=== PATIENT | female | born 1955 | race Caucasian/White ===

== ENCOUNTER 2018-06-16 15:36 | Outpatient (REF) | payer MEDICARE, SELFPAY ==
--- NOTE | 2018-06-16 15:00 | PAPFT_PTH ---
PATIENT: Jocelyn Sanchez LOC: [facility] U#:[id number] AGE/SX: 62/F ROOM: RE06/16/[address]: ARIELLE Chavez : 1955 BED: DIS: 06/16/2018 SPEC #: [id number] RECD: 06/17/18 12:51 STATUS: TABATHA REQ #: [id number] MANNY: 06/16/18 15:[address]: Estelita Lindsey DEPT: [facility] Cytology RECD BY: Eva Sepulveda Tissues: 1 - CX/ENDOCX FOR PAP SMEARS Procedures: PAP THIN PREP/UVM Screening HPV DNA PROBE Comments: [id number]
== END 2018-06-16 15:56 ==
LOC: LBN 15:36
PROVIDERS: PCP Nurse Practitioner Family; Visit Provider Nurse Practitioner Family
DX: Z12.4 Encounter for screening for malignant neoplasm of cervix (principal); Z11.51 Encounter for screening for human papillomavirus (HPV)
CPT/HCPCS: 88142; 87624

== ENCOUNTER 2018-08-04 05:14 | Outpatient (CLI) | payer MEDICARE, SELFPAY ==
--- NOTE | 2018-08-04 10:40 | DI.MAMMO_ITS ---
SYMPTOMS/DIAGNOSIS: BREAST CANCER SCREENING, Z12.31 SYMPTOM/DIAGNOSIS: SCREENING, Z12.13 MAMMOGRAMS: Mammograms were interpreted according to the usual protocol including computer analysis with CAD system, tomosynthesis and C view imaging. The breasts are of moderate density with fairly symmetrical distribution of fibroglandular tissue. No dominant mass or clumped microcalcification is identified in either breast. Current examination is compared with the previous examination of July 2015 and there has been no gross interval change in appearance in comparison with the previous studies. CONCLUSION: No specific evidence of malignancy at this time. Routine screening examinations are suggested at yearly intervals in this age group according to the ACS/ACR guidelines. Category 1, breast density category B. MQSA ASSESSMENT OF FINDINGS: Negative. Category 1. Patient will receive a letter notifying them of these results. BI-RADS category B. There are scattered areas of fibroglandular density.
== END 2018-08-04 05:34 ==
PROVIDERS: PCP Nurse Practitioner Family; Visit Provider Nurse Practitioner Family
DX: Z12.31 Encounter for screening mammogram for malignant neoplasm of breast (principal)
CPT/HCPCS: 77063; 77067

== ENCOUNTER 2019-07-20 00:54 | Outpatient (CLI) | payer MEDICARE, SELFPAY ==
[2019-07-20 10:50] LABS: Hemoglobin A1C 5.7 % (3.8-5.6)
[2019-07-20 11:02] LABS: ALT 19 U/L (14-59); AST 16 U/L (15-37); Albumin 3.9 g/dL (3.4-5.0); Alkaline Phosphatase 50 U/L (46-116); Anion Gap 8.2 mmol/L (3-11); BUN 17 mg/dL (7-18); Bilirubin, Total 0.8 mg/dL (0.2-1.0); CO2 30.8 mmol/L (21.0-32.0); CREATININE 0.79 mg/dL (0.55-1.02); Calcium 9.5 mg/dL (8.5-10.1); Calculated LDL 192 mg/dL; Chloride 103 mmol/L (98-107); Cholesterol 275 mg/dL (<200); Glucose 89 mg/dL (74-106); HDL Cholesterol 63 mg/dL (40-60); Potassium 4.3 mmol/L (3.5-5.1); Sodium 142 mmol/L (136-145); Total Protein 7.1 g/dL (6.4-8.2); Triglyceride 103 mg/dL (<150)
== END 2019-07-20 01:14 ==
PROVIDERS: PCP Nurse Practitioner Family; Visit Provider Nurse Practitioner Family
DX: E78.5 Hyperlipidemia, unspecified (principal); R73.09 Other abnormal glucose
CPT/HCPCS: 36415; 80053; 80061; 83036

== ENCOUNTER 2019-08-10 02:23 | Outpatient (CLI) | payer MEDICARE, SELFPAY ==
--- NOTE | 2019-08-10 10:42 | DI.MAMMO_ITS ---
EXAM: MG MAMMO SCREENING CLINICAL HISTORY: screening Z12.39. TECHNIQUE: Bilateral full field digital CC and MLO mammographic images were obtained with 3D tomosyn thesis and utilizing computer aided detection (CAD). COMPARISON: Available for comparison. FINDINGS: Masses/Architectural Distortion: There appears to be a partially obscured retroareolar nodule in the right breast. Microcalcifications: No suspicious pleomorphic-type are seen. Skin Thickening/Nipple Retraction: None. IMPRESSION: 1. Nodular opacity in the retroareolar region of the right breast. 2. This area should be further evaluated with spot compression views. Ultrasound may be indicated at that time. BI-RADS Cat 0 - Assessment Incomplete: Need additional imaging evaluation Breast Density - Category B - Scattered areas of fibroglandular density A negative radiographic report should not delay biopsy if a dominant or clinically suspicious mass is present. Up to ten percent of cancers are not identified on mammography. A negative report may reinforce clinical impression. Adenosis and dense breasts may obscure an underlying neoplasm. False positive reports average 6 to 10%. Patient will receive a letter notifying them of these results.
== END 2019-08-10 02:43 ==
PROVIDERS: PCP Nurse Practitioner Family; Visit Provider Nurse Practitioner Family
DX: Z12.31 Encounter for screening mammogram for malignant neoplasm of breast (principal); R92.8 Other abnormal and inconclusive findings on diagnostic imaging of breast
CPT/HCPCS: 77063; 77067

== ENCOUNTER 2020-07-20 10:52 | Outpatient (REF) | payer MEDICARE, SELFPAY ==
[2020-07-20 14:31] LABS: Hemoglobin A1C 5.6 % (<5.7)
[2020-07-20 14:41] LABS: BUN 16 mg/dL (7-18); CREATININE 0.88 mg/dL (0.55-1.02); Calcium 9.3 mg/dL (8.5-10.1); Calculated LDL 87 mg/dL (<100); Chloride 100 mmol/L (98-107); Cholesterol 170 mg/dL (<200); Glucose 105 mg/dL (74-106); HDL Cholesterol 63 mg/dL (40-60); Potassium 3.5 mmol/L (3.5-5.1); Sodium 139 mmol/L (136-145); Triglyceride 103 mg/dL (<150)
== END 2020-07-20 11:12 ==
LOC: LBN 10:52
PROVIDERS: PCP Nurse Practitioner Family; Visit Provider Nurse Practitioner Family
DX: E78.5 Hyperlipidemia, unspecified (principal); I10 Essential (primary) hypertension; R73.03 Prediabetes
CPT/HCPCS: 80048; 80061; 83036

== ENCOUNTER 2021-12-18 02:28 | Outpatient (CLI) | payer OTHER, SELFPAY ==
[2021-12-18 13:04] LABS: Anion Gap 10.1 mmol/L (3-11); BUN 19 mg/dL (7-18); CO2 28.9 mmol/L (21.0-32.0); CREATININE 0.9 mg/dL (0.55-1.02); Calcium 8.8 mg/dL (8.5-10.1); Chloride 102 mmol/L (98-107); Glucose 106 mg/dL (74-106); Potassium 3.1 mmol/L (3.5-5.1); Sodium 141 mmol/L (136-145)
== END 2021-12-18 02:29 | disposition home or self-care (01) ==
LOC: LOS 02:28
PROVIDERS: PCP Nurse Practitioner Family; Visit Provider Nurse Practitioner Family
DX: I10 Essential (primary) hypertension (principal)
CPT/HCPCS: 36415; 80048

== ENCOUNTER 2022-01-15 18:13 | Outpatient (REF) | payer OTHER, SELFPAY ==
[2022-01-16 17:40] LABS: ALT 23 U/L (14-59); Anion Gap 11.6 mmol/L (3-11); BUN 18 mg/dL (7-18); CO2 30.4 mmol/L (21.0-32.0); CREATININE 1.1 mg/dL (0.55-1.02); Calcium 8.8 mg/dL (8.5-10.1); Calculated LDL 81 mg/dL (<100); Chloride 110 mmol/L (98-107); Cholesterol 162 mg/dL (<200); Estimated GFR 49.39 (mL/min/1.73m2); Glucose 126 mg/dL (74-106); HDL Cholesterol 53 mg/dL (40-60); Potassium 3.5 mmol/L (3.5-5.1); Sodium 152 mmol/L (136-145); Triglyceride 140 mg/dL (<150)
== END 2022-01-15 18:14 | disposition home or self-care (01) ==
LOC: LBN 18:13
PROVIDERS: PCP Nurse Practitioner Family; Visit Provider Family Medicine
DX: I10 Essential (primary) hypertension (principal); E78.5 Hyperlipidemia, unspecified
CPT/HCPCS: 80048; 80061; 84460

== ENCOUNTER 2022-10-08 03:15 | Outpatient (CLI) | payer OTHER, SELFPAY ==
[2022-10-08 12:48] LABS: Anion Gap 9.1 mmol/L (3-11); BUN 16 mg/dL (7-18); CO2 30.9 mmol/L (21.0-32.0); Calcium 9.4 mg/dL (8.5-10.1); Chloride 106 mmol/L (98-107); Estimated GFR 60.98 (mL/min/1.73m2); Glucose 133 mg/dL (74-106); Potassium 3.3 mmol/L (3.5-5.1); Sodium 146 mmol/L (136-145)
== END 2022-10-08 03:16 | disposition home or self-care (01) ==
LOC: LOS 03:15
PROVIDERS: PCP Nurse Practitioner Family; Visit Provider Nurse Practitioner Family
DX: I10 Essential (primary) hypertension (principal)
CPT/HCPCS: 36415; 80048

== ENCOUNTER 2022-10-22 03:09 | Outpatient (CLI) | payer OTHER, SELFPAY ==
[2022-10-22 12:21] LABS: Anion Gap 5.8 mmol/L (3-11); BUN 10 mg/dL (7-18); CO2 29.2 mmol/L (21.0-32.0); CREATININE 0.8 mg/dL (0.55-1.02); Calcium 8.9 mg/dL (8.5-10.1); Chloride 105 mmol/L (98-107); Estimated GFR 79.71 (mL/min/1.73m2); Glucose 90 mg/dL (74-106); Potassium 3.6 mmol/L (3.5-5.1); Sodium 140 mmol/L (136-145)
[2022-10-22 12:41] LABS: Hemoglobin A1C 5.8 % (<5.7)
== END 2022-10-22 03:10 | disposition home or self-care (01) ==
LOC: LOS 03:09
PROVIDERS: PCP Nurse Practitioner Family; Visit Provider Nurse Practitioner Family
DX: E87.6 Hypokalemia (principal); R73.09 Other abnormal glucose; I10 Essential (primary) hypertension
CPT/HCPCS: 36415; 80048; 83036

== ENCOUNTER 2023-07-13 17:43 | Observation (INO) | payer OTHER, SELFPAY ==
[2023-07-13] VITALS (35 sets, daily range): BP systolic 123–169; BP diastolic 72–118; PULSE 62–121; RESP 17–29; TEMP 36.6–37.3; O2SAT 92–97
--- NOTE | 2023-07-13 17:45 | RT.EKG_ITS ---
APPROVED REPORT Exam: Resting ECG Reason for Exam: chest pressure/sob Patient Location: E HR:101 bpm ECG Measurements Heart Rate 101 AXIS AL [id number] P [id number] QRSd 160 QRS -17 QT 384 T 160 QTc 498 Conclusion Atrial fibrillation...? atrial activity Left bundle branch block...QRSd>120, broad/notched R ST elevation secondary to IVCD...Multiple VCG criteria Atrial fibrillation with rapid ventricular response at a rate of 101. Left bundle branch block. Not meeting Sgarbossa nor modified Beaulieu criteria for ischemia.
--- NOTE | 2023-07-13 17:53 | W.ED.GENAD ---
HPI General Stated Complaint: SOB MENA: 2 Date/Time Provider Initiated Documentation: 07/13/23 17:53. HPI Narrative: MDM This is an overall well-appearing normothermic and intermittently tachycardic 68-year-old female with A-fib RVR shortness of breath and chest pressure concerning for possibility of ACS. ECG is not ischemic so no indication for thrombolytics. Patient is not volume overloaded to suggest acute decompensated heart failure. She is not a smoker but she does have a history of prediabetes hypertension hyperlipidemia so she is certainly at increased risk for heart failure. Patient is relatively low risk for PE however will obtain a D-dimer as she is not PERC negative. No significant cough to suggest pneumonia however will obtain a chest x-ray. Will swab for COVID influenza and RSV. I considered sepsis however the patient has not had any fevers and is not hypotensive nor febrile so I did not order lactate blood cultures or treat empirically with antibiotics. Patient has no pain out of proportion to suggest necrotizing soft tissue infection. No trauma to suggest pneumothorax. No tearing quality to suggest aortic dissection. Not hypotensive nor a dialysis patient so patient is low risk for tamponade. No history of emesis to suggest esophageal rupture. Patient has received aspirin prehospital. 7:15 PM Negative troponin. Moderately elevated proBNP. No prior for comparison. Comprehensive metabolic panel with mild hyperglycemia but no anion gap and normal bicarbonate??not consistent with DKA. No JD. Normal reassuring magnesium. Mildly elevated TSH. Free T4 pending. Negative D-dimer. On chest x-ray patient was found to have mild infiltrate in left lower lobe with small bilateral pleural effusions. COVID influenza RSV all negative. CBC with no anemia thrombocytopenia nor leukocytosis. Given pleural effusion and elevated proBNP will complete limited bedside echocardiogram. 7:50 PM Patient did have a moderate appearing ejection fraction and in conjunction with her JVD with hepatojugular reflex and concerned about the possibility of acute heart failure. Anticipate hospitalizing patient. Patient amenable. Given left lobe infiltrate will provide oral antibiotics and dose with furosemide given bilateral B-lines concerning for acute heart failure. Patient will likely benefit from monitoring on telemetry and update echocardiogram. [id number] 2 elevated based on history of hypertension so we will treat with 1 mg/kg enoxaparin. 8 PM I spoke with Dr. Barraza who agreed graciously to hospitalize the patient. Chronic conditions affecting the care of the patient: Atrial fibrillation hypertension History obtained from an outside historian: Paramedics External record review: [facility] [place] [Diagnostic interpretations performed by me: Per my independent interpretation chest x-ray shows: Increased interstitial markings bilaterally with left lower lobe infiltrate Per my independent interpretation EKG shows: Atrial fibrillation with rapid ventricular response at a rate of 101. Left bundle branch block. Not meeting Sgarbossa nor modified Beaulieu criteria for ischemia. Medications: Furosemide Social determinants of health affecting disposition: N/A Management discussed with: Dr. Barraza Treatment/interventions considered: Discharge but deferred given decreased EF Response to therapies provided: N/A HPI This is a 68-year-old female on metoprolol and amlodipine in the setting of atrial fibrillation arriving to the emergency department via ambulance in the setting of shortness of breath with chest pressure that began at 4 AM this morning. Patient says her chest pressure worsened with exertion. She was found to be satting in the low 90s on room air for paramedics for which she received a nebulizer oxygen at 3 and 24 mg of aspirin. She endorses a central chest tightness that is nonradiating. She did have a cough several days ago has not had any recent fevers. She has had no new leg swelling or leg gain. She is due to take her 25 mg of metoprolol tartrate this evening. She also takes amlodipine. She has been adherent with these medications. She has never had a PE nor DVT. She is not anticoagulated. No recent travel. No nausea vomiting nor abdominal pain. She occasionally gets some lower extremity swelling but this has not changed. Exam General: Well-appearing in no acute distress speaking in complete sentences. Head: Normocephalic, atraumatic. Eye: Extraocular eye movements intact. No conjunctival injection. No scleral icterus. Ear, nose, mouth, throat: Grossly normal inspection. Normal voice, handling secretions normally. Neck: Trachea midline. Cardiovascular: Well-perfused distal extremities. Irregularly irregular rhythm. Elevated JVD with hepatojugular reflex present Respiratory: Nonlabored respiration. Clear lungs bilaterally. Gastrointestinal: Nondistended abdomen. Musculoskeletal: No significant lower extremity pitting edema. Moving all 4 extremities spontaneously. Skin: Normal for age and race, grossly normal temperature and turgor. No acute rash. Neurologic: Alert and appropriate, no apparent acute deficits. Psychiatric: Mood and manner are appropriate. Grooming and personal hygiene are appropriate. Related Data Home Medications Medication Instructions Recorded Confirmed aspirin 81 mg tablet,delayed 81 mg PO DAILY 11/22/12 07/13/23 release (Ecotrin Low Strength) amlodipine 10 mg tablet 10 mg PO DAILY #90 tabs 10/10/22 07/13/23 apixaban 5 mg tablet (Eliquis) 5 mg PO BID #60 tabs 07/14/23 cefpodoxime 200 mg tablet 200 mg PO BID #10 tabs 07/14/23 doxycycline hyclate 100 mg capsule 100 mg PO BID #10 caps 07/14/23 furosemide 40 mg tablet (Lasix) 40 mg PO DAILY #30 tabs 07/14/23 lisinopril 5 mg tablet 5 mg PO DAILY #30 tabs 07/14/23 metoprolol tartrate 25 mg tablet 50 mg (2 x 25 mg) PO BID #180 tabs 24 07/13/23 potassium chloride 20 mEq 20 meq PO DAILY #30 tabs 07/14/23 tablet,extended release(part/cryst) (Klor-Con M) rosuvastatin 10 mg tablet 10 mg PO HS #90 tabs 07/14/23 07/13/23 Previous Rx's Medication Instructions Recorded amlodipine 10 mg tablet 10 mg PO DAILY #90 tabs 10/10/22 apixaban 5 mg tablet (Eliquis) 5 mg PO BID #60 tabs 07/14/23 cefpodoxime 200 mg tablet 200 mg PO BID #10 tabs 07/14/23 doxycycline hyclate 100 mg capsule 100 mg PO BID #10 caps 07/14/23 furosemide 40 mg tablet (Lasix) 40 mg PO DAILY #30 tabs 07/14/23 lisinopril 5 mg tablet 5 mg PO DAILY #30 tabs 07/14/23 metoprolol tartrate 25 mg tablet 50 mg (2 x 25 mg) PO BID #180 tabs 07/14/23 potassium chloride 20 mEq 20 meq PO DAILY #30 tabs 07/14/23 tablet,extended release(part/cryst) (Klor-Con M) rosuvastatin 10 mg tablet 10 mg PO HS #90 tabs 07/14/23 Allergies Allergy/AdvReac Type Severity Reaction Status Date / Time propranolol HCl Allergy Mild Skin Rash Unverified 07/13/23 17:47 [From [facility] [place]] [facility] All Active Problems (Updated 07/13/23 @ 20:20 by Samy Barraza) Acute congestive heart failure (Acute) Infiltrate of lower lobe of left lung present on imaging study (Acute) Essential hypertension (Chronic) Paroxysmal atrial fibrillation (Chronic ~2018) Hyperlipemia (Chronic) Prediabetes (Chronic) Atypical pigmented skin lesion (Chronic) Surgical History S/P manipulation of AC joint (~10/30/08) Left by Dr. Cervantes for adhesive capsulitis Family History Mother , at 88 Heart disease Hyperlipidemia Hypertension Father , at 89 Heart disease Hyperlipidemia Alcohol abuse Hypertension Brother Heart disease Hyperlipidemia Attention deficit hyperactivity disorder Hypertension Atrial fibrillation Brother No problems noted. Brother , 53 of suicide No problems noted. Daughter No problems noted. Daughter Depression Son No problems noted. Son No problems noted. Maternal Grandfather No problems noted. Maternal Grandmother No problems noted. Paternal Grandfather , in his 90s of [place] Heart disease Myocardial infarction Paternal Grandmother No problems noted. 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 Pets and animals: Yes Pets and animals: cat(s) Sexually active: No Do you think of yourself as: straight/heterosexual Current gender identity: female What is your relationship status?: How often do you talk on the phone with friends or family?: twice per week How often do you get together with friends or relatives?: decline to answer How often do you attend anabaptist or tenriism services?: decline to answer Do you belong to any clubs or organized social groups?: no Panel score (0-1 are the most socially isolated patients): 0 What type of physical activity do you participate in: none Frequency: does not exercise Mayte/Congregational: Jewish Special mayte needs: No Seatbelt use: always Helmet use: No Drive intox or ride w/intox superintendent drivers: No Do you feel safe at home: Yes Do you feel safe in your relationship?: Yes History History 5 Para 4 Hx # Term Pregnancies Multiple births Hx # Pregnancies Ectopic pregnancies AB induced Hx Number of Living Children 4 AB spontaneous 1 Course Vital Signs Vital signs: Vital Signs Pulse 87 07/13/23 17:43 Respiratory Rate 22 07/13/23 17:43 Blood Pressure 162/118 H 07/13/23 17:43 Pulse Oximetry 95 07/13/23 17:43 Pulse 87 07/13/23 17:43 Respiratory Rate 22 07/13/23 17:43 Blood Pressure 162/118 H 07/13/23 17:43 Blood Pressure Position Sitting 07/13/23 17:43 Pulse Oximetry 95 07/13/23 17:43 Oxygen Delivery Method Room Air 07/13/23 17:43 Oxygen Flow Rate 0 07/13/23 17:43 Pain Level 6 07/13/23 17:43 Medical Decision Making Quality:SDOH Health Related Social Needs: Health related social needs details none, Discharge Plan Disposition Patient Disposition: Admit to [facility] Discharge Details Clinical Impression: Infiltrate of lower lobe of left lung present on imaging study, Acute congestive heart failure Admit Date/Time: 07/13/23 20:25 Admit Provider: Samy Barraza Attending Provider: Samy Barraza Primary Care Provider: Estelita Lindsey ED Provider: Jim Mendez Discharge Data Discharge Date/Time-TO BE ENTERED AT DEPARTURE: 07/13/23 21:21 POCUS Exam (ED) Limited Cardiac Exam DATE OF EXAM: 07/13/23 TIME OF EXAM: 19:49 PROVIDER THAT PERFORMED THE STUDY: Jim Mendez IS THIS A REPEAT EXAM DURING THIS ENCOUNTER: no REASON FOR EXAM: Dyspnea VISUALIZED STRUCTURES: Four Chambers, Left ventricle and Other structure: Lung VIEW OBTAINED: Apical 4-Chamber, Parasternal long-axis and Subxiphoid PERTINENT FINDINGS/IMPRESSION: LV dysfunction; No pericardial effusion INCIDENTAL FINDINGS: Bilateral B-lines. Moderate EF, RV less than LV, no significant pericardial effusion Exam complete
[2023-07-13 18:36] LABS: Abs Immature Grans 0.02 10^3/uL (0.0-0.06); Absolute Basophil Count 0.04 10^3/uL (0.0-0.2); Absolute Eosinophil Count 0.07 10^3/uL (0.0-0.7); Absolute Lymphocyte Count 0.93 10^3/uL (1.2-3.4); Absolute Monocyte Count 0.48 10^3/uL (0.1-0.8); Absolute Neutrophil Count 7.38 10^3/uL (1.2-6.7); Basophils % 0.4; Eosinophils % 0.8; HCT 39.8 % (36.0-46.0); HGB 12.9 g/dL (11.2-15.7); Immature Grans % 0.2; Lymphocytes % 10.4; MCH 28.9 pg (27.0-33.0); MCHC 32.4 % (32.0-36.0); MCV 89 fL (80-95); MPV 11.8 fL (8.0-11.0); Monocytes % 5.4; Neutrophils % 82.8; Platelet Count 199 10^3/uL (130-400); RBC 4.46 10^6/uL (3.93-5.22); RDW 12.9 % (11.7-14.6); RDW-SD 42.7 fL; WBC 8.92 10^3/uL (4.4-10.8)
--- NOTE | 2023-07-13 18:38 | DI.RAD_ITS ---
Exam(s) XR PORTABLE CHEST AP EXAM: XR PORTABLE CHEST AP CLINICAL HISTORY: Short of breath. TECHNIQUE: 2D digital imaging was performed. COMPARISON: No exams were available for comparison FINDINGS: Single AP portable view. Chest leads in place Mild cardiomegaly. Mediastinum is not widened. 6 there is mild infiltrate in left lower lobe. Slig ht blunting of the costophrenic angles indicating probable small pleural effusions. An no evidence of pulmonary edema. No pneumothorax. IMPRESSION: Some mild infiltrate in the left lower lobe. Small pleural effusions bilaterally. DATA REPOSITORY: RADIATION DOSE DELIVERED:
[2023-07-13 19:00] LABS: ALT 23 U/L (14-59); AST 21 U/L (15-37); Albumin 3.6 g/dL (3.4-5.0); Alkaline Phosphatase 57 U/L (46-116); Anion Gap 9.7 mmol/L (3-11); BUN 13 mg/dL (7-18); Bilirubin, Total 0.8 mg/dL (0.2-1.0); CO2 24.3 mmol/L (21.0-32.0); CREATININE 0.8 mg/dL (0.55-1.02); Calcium 8.7 mg/dL (8.5-10.1); Chloride 106 mmol/L (98-107); Estimated GFR 79.22 (mL/min/1.73m2); Glucose 115 mg/dL (74-106); Magnesium 2.2 mg/dL (1.8-2.4); NT-proBNP 2445 pg/mL (<300); Potassium 3.6 mmol/L (3.5-5.1); Sodium 140 mmol/L (136-145); TSH (W/Ref FT4) 4.28 uIU/mL (0.36-3.74); Total Protein 7.1 g/dL (6.4-8.2); Troponin I < 50 ng/L (<or=60)
[2023-07-13 19:07] LABS: D-Dimer 410 ng/mlFEU (<500)
[2023-07-13 19:10] LABS: COVID-19 PCR Negative (Negative); Influenza A PCR Negative (Negative); Influenza B PCR Negative (Negative); RSV PCR Negative (Negative)
[2023-07-13 19:11] LABS: Source NASOPHARYNX
[2023-07-13 19:15] LABS: FREE T4 1.09 ng/dL (0.76-1.46)
--- NOTE | 2023-07-13 20:10 | HPE_ITS ---
Date of service: 07/13/23 Time of Service: 20:11 Assessment and Plan Assessment and plan (1) Acute congestive heart failure: Start date: 07/13/23 Status: Acute Assessment and plan: This is a 68-year-old lady presenting with acute PND and orthopnea the morning of admission though she has been having some slight weight gain and intermittent edema over lower extremities. She has a history of paroxysmal atrial fibrillation and presented with atrial fibrillation without significant tachycardia though her heart rate was in the 90s at times. She currently was on metoprolol which may be adjusted up with patient also having slight worsening of her hypertension. Patient was given IV Lasix in the ED with adequate diuresis and decreased symptoms being able to lie flat in bed at this time. Will continue on IV Lasix with monitoring lab and echocardiogram will be performed in the morning. Does have a history of paroxysmal atrial fibrillation and now appears to have persistent atrial fibrillation which may be contributing to acute symptoms. Cardiology should be consulted at least as an outpatient. Adjustment of her medications may include stopping amlodipine and initiation of Entresto if she does have decreased left ventricular ejection fraction. Her BNP was elevated and she will follow-up as an outpatient. She is a full code. Qualifiers: Heart failure type: systolic Qualified Code(s): I50.21 - Acute systolic (congestive) heart failure (2) Infiltrate of lower lobe of left lung present on imaging study: Start date: 07/13/23 Status: Acute Assessment and plan: Patient does have a question of left lower lobe infiltrate and oral antibiotic therapy was initiated for community-acquired pneumonia with doxycycline and cefpodoxime. He will be continued as an outpatient. (3) Essential hypertension: Status: Chronic Assessment and plan: Patient was on amlodipine and metoprolol and previously was on hydrochlorothiazide which was discontinued. If she does have a decreased left rib ejection fraction with her CHF, there should be consideration of discontinuing amlodipine and continue metoprolol at increased dose and consider initiating Entresto. Her PCP and cardiology can make this determination. She may need chronic Lasix for now which can be converted to oral therapy prior to discharge. We will need to watch for hypokalemia and hypomagnesemia. (4) Paroxysmal atrial fibrillation: Status: Chronic Assessment and plan: Patient had episodes in the past with documentation of this diagnosis and 2018 but has had increased palpitations which are more persistent and now shortness of breath which has proceeded to PND and orthopnea. She will need to initiate anticoagulation and appears to be willing to initiate if affordable. She is on a baby aspirin which will be continued for now. Inpatient she is on Lovenox. (5) Hyperlipemia: Status: Chronic Assessment and plan: Continue statin while inpatient. Qualifiers: Hyperlipidemia type: other hyperlipidemia Qualified Code(s): E78.49 - Other hyperlipidemia History of Present Illness History of Present Illness Chief Complaint: Acute onset nighttime shortness of breath Narrative: This is a 68-year-old female patient who has a history of hypertension and previous vertigo in 2018 at which time she was having episodes of atrial fibrillation. She is not having significant symptoms of atrial fibrillation other than occasional palpitations but over the last 24 to 48 hours prior to admission the patient was having orthopnea and did awaken acutely short of breath with PND early in the morning prior to admission. She does describe milder symptoms of PND and orthopnea for a couple days prior to this acute event. She denies any significant edema though she has had some weight gain. She also is having chest discomfort but not chest pain upon presentation and her troponins were negative no signs of ischemia on cardiac tracings. She was not hypoxic and there was a low probability of pulmonary emboli with no hypoxemia and negative D-dimer with CT of the chest not be performed. Chest x-ray was positive for left lower lobe infiltrate and bilateral pleural effusions with [id number] ultrasound in the ED revealing B-lines consistent with acute CHF. Patient did respond to IV Lasix. She was initiated on oral antibiotics for her possible left lower lobe infiltrate. She was admitted for cardiac monitoring with adjustment of metoprolol tartrate for heart rate control and blood pressure control while trending labs with continued IV Lasix and oral antibiotics. She did not have fever or elevation of her WBC and procalcitonin was negative. She will be converted to oral Lasix over the next 24 to 48 hours if stable plans are to have echocardiogram in the morning. She was initiated on Lovenox and to consider Eliquis or Xarelto for long-term anticoagulation with this discussion initiated with patient upon admission with risk and benefits reviewed and to be initiated before discharge. Patient does have some concerns of insurance coverage, should be reviewed by Care Management. She also needs to follow-up with cardiology. She is a full code. Review of Systems Narrative: 13 point review of systems positive for intermittent edema lower extremities on amlodipine and recent slight weight gain which was unintentional, otherwise unrevealing or stable. As mentioned in the HPI she has a new onset of orthopnea and PND morning of which PFSH All Active Problems (Updated 07/13/23 @ 20:20 by Samy Barraza) Acute congestive heart failure (Acute) Infiltrate of lower lobe of left lung present on imaging study (Acute) Essential hypertension (Chronic) Paroxysmal atrial fibrillation (Chronic ~2018) Hyperlipemia (Chronic) Prediabetes (Chronic) Atypical pigmented skin lesion (Chronic) Surgical History S/P manipulation of AC joint (~10/30/08) Left by Dr. Cervantes for adhesive capsulitis Family History Mother , at 88 Heart disease Hyperlipidemia Hypertension Father , at 89 Heart disease Hyperlipidemia Alcohol abuse Hypertension Brother Heart disease Hyperlipidemia Attention deficit hyperactivity disorder Hypertension Atrial fibrillation Brother No problems noted. Brother , 53 of suicide No problems noted. Daughter No problems noted. Daughter Depression Son No problems noted. Son No problems noted. Maternal Grandfather No problems noted. Maternal Grandmother No problems noted. Paternal Grandfather , in his 90s of [place] Heart disease Myocardial infarction Paternal Grandmother No problems noted. 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 Pets and animals: Yes Pets and animals: cat(s) Sexually active: No Do you think of yourself as: straight/heterosexual Current gender identity: female What is your relationship status?: How often do you talk on the phone with friends or family?: twice per week How often do you get together with friends or relatives?: decline to answer How often do you attend jehovah's witness or congregational services?: decline to answer Do you belong to any clubs or organized social groups?: no Panel score (0-1 are the most socially isolated patients): 0 What type of physical activity do you participate in: none Frequency: does not exercise Mayte/Baptist: Yazdanism Special mayte needs: No Seatbelt use: always Helmet use: No Drive intox 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 Do you feel safe at home: Yes Do you feel safe in your relationship?: Yes History History 2 5 Para 4 Hx # Term Pregnancies Multiple births Hx # Pregnancies Ectopic pregnancies AB induced Hx Number of Living Children 4 AB spontaneous 1 Meds Allergies and Home Medications Allergies Allergy/AdvReac Type Severity Reaction Status Date / Time propranolol HCl Allergy Mild Skin Rash Unverified 07/13/23 17:47 [From Inderal LA] Home Medications Medication Instructions Recorded Confirmed Type aspirin 81 mg tablet,delayed 81 mg PO DAILY 11/22/12 07/13/23 History release (Ecotrin Low Strength) amlodipine 10 mg tablet 10 mg PO DAILY #90 tabs 10/10/22 07/13/23 Rx metoprolol tartrate 25 mg tablet 25 mg PO BID #180 tabs 11/19/22 07/13/23 Rx rosuvastatin 10 mg tablet 10 mg PO DAILY #90 tabs 11/19/22 07/13/23 Rx Exam Narrative Exam Narrative: General: Patient is moderately obese, alert and oriented x 3 and in no acute distress. She does have a slight tic of her face and upper extremity while talking. HEENT: Normocephalic, eyes with pupils equal and react to light symmetrically, extraocular intact and sclera anicteric. Oropharynx with dry mucosa and patient is edentulous. Neck: Supple without JVD. Back: Kyphotic without CVA tenderness. Lungs: Fair aeration slight decreased aeration left base and occasional coarse crackle. No focalizing rales or rhonchi. No increased expiratory phase with normal vesicular breath sounds diffusely but audible upper airway wheezing when patient is semisupine. Heart: Irregular irregular rhythm with borderline tachycardia, no murmurs or gallops appreciated. Breast: Exam deferred. Abdomen: Obese contour, soft nontender to palpation with no palpable hepatosplenomegaly. Bowel sounds positive all quadrants. Genitalia/rectal: Exam deferred. Extremities: Nonpitting edema both lower extremities with trace pitting over ankles and no clubbing or cyanosis. Good capillary refill. Skin: Normal color, warm and dry. Neuro: Cranial nerves II through XII gross intact, no focalizing motor deficits but gross tic over upper extremities and face with patient appearing comfortable and slightly worsened with conversation. No tremor. Psych: Normal affect and mood though slightly anxious at times when discussing her history. Slightly pressured speech. No abnormal thought processes. Remote and recent memory grossly intact. Results Imaging Imaging Studies: EXAM: XR PORTABLE CHEST AP CLINICAL HISTORY: Short of breath. TECHNIQUE: 2D digital imaging was performed. COMPARISON: No exams were available for comparison FINDINGS: Single AP portable view. Chest leads in place Mild cardiomegaly. Mediastinum is not widened. 6 there is mild infiltrate in left lower lobe. Slight blunting of the costophrenic angles indicating probable small pleural effusions. An no evidence of pulmonary edema. No pneumothorax. IMPRESSION: Some mild infiltrate in the left lower lobe. Small pleural effusions bilaterally. Labs 07/13/23 18:27 07/13/23 18:27 Labs: Laboratory Results - last 24 hr 07/13/23 18:27 WBC 8.92 RBC 4.46 Hgb 12.9 Hct 39.8 MCV 89 MCH 28.9 MCHC 32.4 RDW 12.9 Plt Count 199 MPV 11.8 H Immature Gran % 0.2 Neutrophils % 82.8 Lymphocytes % 10.4 Monocytes % 5.4 Eosinophils % 0.8 Basophils % 0.4 Nucleated RBC % 0.0 Absolute Neutrophils 7.38 H Absolute Lymphocytes 0.93 L Absolute Monocytes 0.48 Absolute Eosinophils 0.07 Absolute Basophils 0.04 D-Dimer 410 Sodium 140 Potassium 3.6 Chloride 106 Carbon Dioxide 24.3 Anion Gap 9.7 BUN 13 Creatinine 0.8 Est GFR (CKD-EPI 2020) 79.22 Glucose 115 H Calcium 8.7 Magnesium 2.2 Total Bilirubin 0.8 AST 21 ALT 23 Alkaline Phosphatase 57 Troponin I < 50 NT-Pro-B Natriuret Pep 2445 H Total Protein 7.1 Albumin 3.6 TSH 4.28 H Free T4 1.09 COVID-19 Source NASOPHARYNX SARS-CoV-2 (PCR) Negative Influenza Type A (PCR) Negative Influenza Type B (PCR) Negative RSV (PCR) Negative Last Vital Signs Temp 36.8 C 07/13/23 20:08 Pulse 73 07/13/23 19:31 Resp 18 07/13/23 19:40 BP 134/94 H 07/13/23 19:31 Pulse Ox 93 07/13/23 19:31 Time Spent Time spent with Patient: >75 minutes Time was spent: preparing to see the patient(eg.review tests), obtaining and/or reviewing separately otained hiistory, ordering medications,tests, procedures, referring, communicating with other health childcare provider, indepentently interpreting results, counseling the patient and care coordination
[2023-07-13] MEDS: Amoxicillin 875/Clav. 125 TAB PO (20:50)
[2023-07-13] MEDS: Doxycycline Hyclate 100 MG CAP PO (20:50)
[2023-07-13] MEDS: Enoxaparin 80 MG/0.8 ML SYR 90 MG SC (20:52)
[2023-07-13 21:16] LABS: Procalcitonin 0.1 ng/mL
[2023-07-13 22:17] LABS: Troponin I < 50 ng/L (<or=60)
[2023-07-13] MEDS: Metoprolol 25 MG TAB PO (23:31)
[2023-07-14 04:15] VITALS: BP 119/70; PULSE 64; RESP 20; TEMP 37.4; O2SAT 92
[2023-07-14] MEDS: Metoprolol 25 MG TAB PO ×2 (05:56→12:40)
--- NOTE | 2023-07-14 07:00 | DI.US_ITS ---
APPROVED REPORT EXAM: Comprehensive 2D, Doppler, and color-flow Echocardiogram Patient Location: In-Patient Room/Bed: 212 Operating Room Orderly: Jonnathan Everett RDCS (AE) Indications: PAF with acute CHF Other Information Study Quality: Good. Technically limited study due to body habitus. Conclusion A technically limited study. 1. Left atrium moderately dilated,other chambers normal sizes. 2. Mild to moderate LVH. Akinesis of the interventricular septum superimposed on mild global hypokine sis, EF 35-40%. Normal RV systolic function. 3. Anatomically normal valves. Moderate MR, mild TR with mild phtn. 4. No pericardial effusion. Wall motion Left Ventricle The left ventricle is normal size. Left ventricular systolic function is mild to moderately decreased . There is normal left ventricular wall thickness. There is global hypokinesis of the left ventricle. There is no ventricular septal defect visualized. LVEF is 35%. Right Ventricle The right ventricle is normal size. Right ventricular systolic function is grossly normal. Atria Left atrium is borderline dilated. The right atrium size is normal. The interatrial septum is intact with no evidence for an atrial septal defect. Aortic Valve The aortic valve is normal in structure. There is no aortic valvular stenosis. No aortic regurgitatio n is present. Mitral Valve The mitral valve is normal in structure. No evidence of mitral valve stenosis. Moderate mitral regurg itation. Tricuspid Valve The tricuspid valve is normal in structure. There is no tricuspid valve stenosis. Mild tricuspid regu rgitation. The RVSP is 35.2 mmHg. Pulmonic Valve Pulmonic valve is not well visualized. Great Vessels The aortic root is normal in size. Ascending aorta is not well visualized. Aortic arch is normal in c aliber. IVC is normal in size and collapses >50% with inspiration. Pericardium There is no pericardial effusion. 2D Dimensions IVSD d PLAX 0.76 cm F: 0.6-1.0 Ao Root d 2.84 cm F: 2.7 - 3.3 LVPW d PLAX 0.80 cm F: 0.6 - 1.0 LVID d PLAX 4.96 cm F: 3.8 - 5.2 LVDs 4.15 cm F: 2.2 - 3.5 LV EF Teichholz 33.9 % FS 16.20 % LV EDV (Teich) 115.9 mL LV ESV (Teich) 76.5 mL Stroke Vol Index (Teich) 18.29 M-Mode TAPSE 1.80 cm (M/F) >1.7 Auto EF LV EDV A4C 196.9 mL LV EDV A2C 157.2 mL LV EDV BP 178.7 mL LV ESV A4C 129.2 mL LV ESV A2C 96.8 mL LV ESV BP 112.0 mL LVEF(%) A4C 34.4 % LVEF(%) A2C 38.4 % LVEF(%) BP 37.3 % LV SV A4C 67.6 ml LV SV A2C 60.4 ml LV SV BP 66.6 ml LV CO A4C 7.2 L/min LV CO A2C 5.3 L/min LV CO BP 6.2 L/min HR A4C 106.20 BPM HR A2C 88.03 BPM LV EDV Index (BP) LA Volume LA Length A4C 4.0 cm LA Length A2C LA Area A4C s 14.82 cm2 LA Area A2C s LA Vol A4C A-L 46.94 mL LA Vol A2C A-L LA Vol Biplane A-L LA Vol A4C MOD 35.9 mL LA Vol A2C MOD LA Vol BP MOD RA Volume RA Area A4C 4.4 cm2 RA ESV A4C (A-L) 6.5mL RA Vol/BSA A4C A-L RA Length A4C 2.6 cm RA ESV A4C (MOD) 6.5mL Aortic Valve AoV Vmax 1.09 m/s LVOT Vmax 0.99 m/s AoV Peak Grad 4.7 mmHg LVOT Peak Grad 3.9 mmHg AoV Area (Vmax) 2.05 cm2 LVOT VTI 0.206 m AoV VTI 0.231 m LVOT Mean Grad 1.8 mmHg AoV Mean Elias. 0.81 m/s LVOT SV 46.42 mL AoV Mean Grad 2.9 mmHg LVOT Diam s 1.65 cm AoV Area (VTI) 2.01 cm2 Velocity Ratio 0.91 Tricuspid Valve RA Pressure 3.00 mmHg TR Vmax 2.84 m/s TR Peak Grad 32.1 mmHg RVSP (TR) 35.2 mmHg
[2023-07-14 07:07] LABS: HCT 38.5 % (36.0-46.0); HGB 12.4 g/dL (11.2-15.7); MCH 28.6 pg (27.0-33.0); MCHC 32.2 % (32.0-36.0); MCV 89 fL (80-95); MPV 12.6 fL (8.0-11.0); Platelet Count 177 10^3/uL (130-400); RBC 4.33 10^6/uL (3.93-5.22); RDW 12.7 % (11.7-14.6); RDW-SD 41.9 fL; WBC 6.98 10^3/uL (4.4-10.8)
[2023-07-14 07:32] LABS: ALT 24 U/L (14-59); AST 16 U/L (15-37); Albumin 3.2 g/dL (3.4-5.0); Alkaline Phosphatase 52 U/L (46-116); BUN 9 mg/dL (7-18); CREATININE 0.8 mg/dL (0.55-1.02); Calcium 8.2 mg/dL (8.5-10.1); Chloride 104 mmol/L (98-107); Estimated GFR 79.22 (mL/min/1.73m2); Glucose 106 mg/dL (74-106); Magnesium 1.9 mg/dL (1.8-2.4); Sodium 141 mmol/L (136-145); Total Protein 6.6 g/dL (6.4-8.2)
[2023-07-14 08:47] VITALS: BP 135/78; PULSE 79; RESP 18; TEMP 37.3; O2SAT 93
[2023-07-14] MEDS: Cefpodoxime 200 MG TAB PO (09:07)
[2023-07-14] MEDS: amLODIPine 10 MG TAB PO (09:07)
[2023-07-14] MEDS: Potassium Chloride 20 MEQ TABCR 40 MEQ PO (09:07)
[2023-07-14] MEDS: Doxycycline Hyclate 100 MG CAP PO (09:07)
[2023-07-14] MEDS: Aspirin E.C. 81 MG TABEC PO (09:07)
[2023-07-14] MEDS: Normal Saline Flush 10 ML SYR IVP ×2 (09:08)
[2023-07-14] MEDS: Furosemide 40 MG/4 ML VIAL IVP (09:08)
--- NOTE | 2023-07-14 09:17 | PDOC.CMIN ---
Date of service: 07/14/23 Time of Service: 09:18 Care Management Initial Assmt Initial Assessment REASON FOR HOSPITALIZATION:: CHF PREVIOUS FUNCTIONAL STATUS/SOCIAL/FAMILY SUPPORTS:: Jocelyn lives in [place] ADVANCE DIRECTIVES:: On file. Carlos BATISTA Has patient been provided with info about the portal/API?: Yes Did the patient sign up for the portal?: No CODE STATUS:: Full Code INSURANCE COVERAGE / FINANCIAL ISSUES:: [employer] Medicare Replacement PRIMARY CARE PHYSICIAN:: Estelita Lindsey POTENTIAL DISCHARGE NEEDS:: follow up with PCP and plan of care PATIENT/FAMILY EDUCATION NEEDS:: Review of discharge instructions, activity, diet, daily weights, limitations, follow up plan, discuss Ask Me [employer] TRANSPORTATION:: via private vehicle PLAN:: Anticipate Jocelyn will be discharged home with no new services. She will follow up with her PCP and plan of care and transport with family. CM will continue to support Jocelyn and her discharge planning needs. PFSH All Active Problems (Updated 07/13/23 @ 20:20 by Samy Barraza) Acute congestive heart failure (Acute) Infiltrate of lower lobe of left lung present on imaging study (Acute) Essential hypertension (Chronic) Paroxysmal atrial fibrillation (Chronic ~2018) Hyperlipemia (Chronic) Prediabetes (Chronic) Atypical pigmented skin lesion (Chronic) Surgical History S/P manipulation of AC joint (~10/30/08) Left by Dr. Cervantes for adhesive capsulitis Family History Mother , at 88 Heart disease Hyperlipidemia Hypertension Father , at 89 Heart disease Hyperlipidemia Alcohol abuse Hypertension Brother Heart disease Hyperlipidemia Attention deficit hyperactivity disorder Hypertension Atrial fibrillation Brother No problems noted. Brother , 53 of suicide No problems noted. Daughter No problems noted. Daughter Depression Son No problems noted. Son No problems noted. Maternal Grandfather No problems noted. Maternal Grandmother No problems noted. Paternal Grandfather , in his 90s of [place] Heart disease Myocardial infarction Paternal Grandmother No problems noted. 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 Pets and animals: Yes Pets and animals: cat(s) Sexually active: No Do you think of yourself as: straight/heterosexual Current gender identity: female What is your relationship status?: How often do you talk on the phone with friends or family?: twice per week How often do you get together with friends or relatives?: decline to answer How often do you attend jainism or judaism services?: decline to answer Do you belong to any clubs or organized social groups?: no Panel score (0-1 are the most socially isolated patients): 0 What type of physical activity do you participate in: none Frequency: does not exercise Mayte/Zoroastrian: Jainism Special mayte needs: No Seatbelt use: always Helmet use: No Drive 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 Do you feel safe at home: Yes Do you feel safe in your relationship?: Yes History History 5 Para 4 Hx # Term Pregnancies Multiple births Hx # Pregnancies Ectopic pregnancies AB induced Hx Number of Living Children 4 AB spontaneous 1 SDOH(Care Management) Screening Will the Patient Participate in the Screening?: Yes Do you worry about having a steady place to live?: no In the past 12 months, have you had to go without electric, gas, oil or water in your home?: no Have you or anyone in your house had to go without enough food to eat?: no Has lack of transportation kept you from medical appointments or from doing things needed for daily living?: no Has anyone in your support network made you feel unsafe for any reason?: no Health Related Social Needs Health related social needs details: none
[2023-07-14 11:23] VITALS: BP 159/72; PULSE 94; RESP 19; TEMP 37; O2SAT 93
--- NOTE | 2023-07-14 14:11 | DSE_ITS ---
Date of service: 07/14/23 Time of Service: 11:00 DS: Diagnosis Discharge Diagnosis (1) Acute congestive heart failure: Status: Acute (2) Infiltrate of lower lobe of left lung present on imaging study: Status: Acute (3) Essential hypertension: Status: Chronic (4) Paroxysmal atrial fibrillation: Status: Chronic (5) Hyperlipemia: Status: Chronic Discharge Plan Disposition Patient Disposition: Home Condition: Stable Discharge Details Reason For Visit: Acute CHF, PAF with controlled rate, HTN Admit Date/Time: 07/13/23 20:25 Admit Provider: Samy Barraza Attending Provider: Samy Barraza [facility]: This is a 68-year-old female patient who has a history of hypertension and previous vertigo in 2018 at which time she was having episodes of atrial fibrillation. She is not having significant symptoms of atrial fibrillation other than occasional palpitations but over the last 24 to 48 hours prior to presentation, she was having orthopnea and did awaken acutely short of breath with PND early in the morning prior to admission. She does describe milder symptoms of PND and orthopnea for a couple days prior to this acute event. She denies any significant edema though she has had some weight gain. She also is having chest discomfort but not chest pain upon presentation and her troponins were negative no signs of ischemia on cardiac tracings. She was not hypoxic and there was a low probability of pulmonary emboli with no hypoxemia and negative D-dimer with CT of the chest not be performed. Chest x-ray was positive for left lower lobe infiltrate and bilateral pleural effusions with [id number] ultrasound in the ED revealing B-lines consistent with acute CHF. Patient did respond to IV Lasix. She was initiated on oral antibiotics for her possible left lower lobe infiltrate. She was admitted for cardiac monitoring with adjustment of metoprolol tartrate for heart rate control and blood pressure control while trending labs with continued IV Lasix and oral antibiotics. She did not have fever or elevation of her WBC and procalcitonin was negative. She was converted to oral Lasix. Echocardiogram was completed and did show: Conclusion A technically limited study. 1. Left atrium moderately dilated,other chambers normal sizes. 2. Mild to moderate LVH. Akinesis of the interventricular septum superimposed on mild global hypokinesis, EF 35-40%. Normal RV systolic function. 3. Anatomically normal valves. Moderate MR, mild TR with mild phtn. 4. No pericardial effusion. additional medication additions included lisinopril, furosemide, potassium and elliquis in additon to antiobiotics to complete course for community acquired pneumonia. She responded will to treatment and is hemodynamically stable and ready for discharge to home with no new services. she should follow up outpatient with primary care provided and cardiology. discharge discussed with DR Carter Home Meds and New Rx's Prescriptions: New doxycycline hyclate 100 mg Capsule 100 mg PO BID Qty: 10 0RF cefpodoxime 200 mg Tablet 200 mg PO BID Qty: 10 0RF potassium chloride [Klor-Con M20] 20 mEq Tablet,Er Particles/Crystals 20 meq PO DAILY Qty: 30 0RF Eliquis 5 mg tablet 5 mg PO BID Qty: 60 0RF furosemide [Lasix] 40 mg tablet 40 mg PO DAILY Qty: 30 0RF lisinopril 5 mg tablet 5 mg PO DAILY Qty: 30 0RF Continued aspirin [Ecotrin Low Strength] 81 MG tablet,delayed release (DR/EC) 81 mg PO DAILY amlodipine 10 mg tablet 10 mg PO DAILY Qty: 90 3RF Rx Instructions: Take 1 tablet once a day Changed rosuvastatin 10 mg tablet 10 mg PO HS Qty: 90 3RF Patient Comments: took home med tonight Rx Instructions: Take 1 tablet once a day metoprolol tartrate 25 mg tablet 50 mg PO BID Qty: 180 3RF Patient Comments: took home med tonight Rx Instructions: Take 1 tablet twice a day Discharge Instructions Instructions: Heart Failure (DC), A-fib (Atrial Fibrillation) (DC) Additional Instructions: your echo shows reduced systolic heart failure with EF of 35-40% Stand Alone Forms: Nursing Discharge Form Referrals: Estelita Lindsey NP [Primary Care Provider] - 07/16/23 12:40 am Jonna Simons MD [ [facility] STAFF PHYSICIAN] - (A Nurse from Dr Simons's office will call you with an appontment ) Activity:: Activity as Tolerated Equipment/Supplies:: No Equipment Needed Diet:: Low Sodium Discharge Orders Discharge Orders: Discharge Order (Routine); Ordered 07/14/23 Ordered By: Catalina Vizcarra Discharge Data Discharge Date/Time-TO BE ENTERED AT DEPARTURE: 07/14/23 15:05 DS: Summary Time Spent with Patient providing and/or coordinating discharge services: Greater than 30 minutes Status at Discharge Functional status at discharge: independent ambulation Overall status at discharge: patient is progressing back to baseline Mental Status: mental status grossly normal Speech and Movement: speech and movement normal Mood: congruent mood Affect: normal affect Quality:SDOH Health Related Social Needs: Health related social needs details none, Health related social needs details: none Exam Const General: cooperative, comfortable and no acute distress Nutritional Appearance: average body habitus Orientation: alert, awake and oriented x3 HENMT Head: normal to inspection, normocephalic and atraumatic Face and sinus: normal facial exam Chest Chest: normal inspection of the chest Resp Effort & Inspection: normal respiratory effort Auscultation: diminished lung sounds Cardio Rhythm: abnormal rhythm (controlled afib) irregularly irregular GI Inspection: normal to inspection Palpation: soft Auscultation: normal bowel sounds Skin General skin exam: no rashes or lesions noted Neuro General: patient alert, patient awake and patient oriented x3 Extrem General: normal to inspection, full ROM and no pedal edema Psych Mental Status: mental status grossly normal Speech and Movement: speech and movement normal Mood: congruent mood Affect: normal affect DS: Data Vitals/I&O Vitals and I&O: Vital Signs Temperature 37.0 C 07/14/23 11:23 Temperature Source Tympanic 07/14/23 11:23 Pulse 94 H 07/14/23 11:23 Pulse Rhythm Irregular 07/14/23 10:40 Pulse 92 H 07/13/23 21:00 Respiratory Rate 19 07/14/23 11:23 Respiratory Effort Normal, Non-Labored 07/14/23 10:40 Respiratory Depth Normal 07/14/23 10:40 Respiratory Pattern Normal 07/14/23 10:40 Blood Pressure 159/72 H 07/14/23 11:23 Blood Pressure Mean 103 07/13/23 20:46 Blood Pressure Position Sitting 07/13/23 17:43 Pulse Oximetry 93 07/14/23 11:23 Oxygen Delivery Method Room Air 07/14/23 11:23 Oxygen Flow Rate 0 07/14/23 11:23 Pain Level 0 07/14/23 11:23 Comment Nurse notified bout BP. 07/14/23 11:23 Intake & Output 01/08/24 01/09/24 01/09/24 23:59 11:59 23:59 Output Total 550 / 550 3150 / 3400 250 / 3400 Balance -550 / -550 -3150 / -3400 -250 / -3400 Weight 97.069 kg Output: Urine 550 / 550 3150 / 3400 250 / 3400 Other: Urine Color Yellow Straw Yellow Urine Appearance Clear Mucous Threads Clear Voiding Methods Toilet Toilet Toilet Bedside Commode Data Completed and Pending Labs on day of discharge: Labs from last 24 hours 07/14/23 07/13/23 07/13/23 06:42 21:45 18:27 WBC 6.98 8.92 RBC 4.33 4.46 Hgb 12.4 12.9 Hct 38.5 39.8 MCV 89 89 MCH 28.6 28.9 MCHC 32.2 32.4 RDW 12.7 12.9 Plt Count 177 199 MPV 12.6 H 11.8 H Immature Gran % 0.2 Neutrophils % 82.8 Lymphocytes % 10.4 Monocytes % 5.4 Eosinophils % 0.8 Basophils % 0.4 Nucleated RBC % 0.0 Absolute Neutrophils 7.38 H Absolute Lymphocytes 0.93 L Absolute Monocytes 0.48 Absolute Eosinophils 0.07 Absolute Basophils 0.04 D-Dimer 410 Sodium 141 140 Potassium 3.0 L 3.6 Chloride 104 106 Carbon Dioxide 26.0 24.3 Anion Gap 11.0 9.7 BUN 9 13 Creatinine 0.8 0.8 Est GFR (CKD-EPI 2020) 79.22 79.22 Glucose 106 115 H Calcium 8.2 L 8.7 Magnesium 1.9 2.2 Total Bilirubin 1.0 0.8 AST 16 21 ALT 24 23 Alkaline Phosphatase 52 57 Troponin I < 50 < 50 NT-Pro-B Natriuret Pep 2445 H Total Protein 6.6 7.1 Albumin 3.2 L 3.6 Procalcitonin 0.1 TSH 4.28 H Free T4 1.09 COVID-19 Source NASOPHARYNX SARS-CoV-2 (PCR) Negative Influenza Type A (PCR) Negative Influenza Type B (PCR) Negative RSV (PCR) Negative PFSH All Active Problems (Updated 07/15/23 @ 00:05 by PATY MAURICIO) Acute congestive heart failure (Acute) Infiltrate of lower lobe of left lung present on imaging study (Acute) Essential hypertension (Chronic) Paroxysmal atrial fibrillation (Chronic ~2018) Hyperlipemia (Chronic) Prediabetes (Chronic) Atypical pigmented skin lesion (Chronic) Surgical History S/P manipulation of AC joint (~10/30/08) Left by Dr. Cervantes for adhesive capsulitis Family History Mother , at 88 Heart disease Hyperlipidemia Hypertension Father , at 89 Heart disease Hyperlipidemia Alcohol abuse Hypertension Brother Heart disease Hyperlipidemia Attention deficit hyperactivity disorder Hypertension Atrial fibrillation Brother No problems noted. Brother , 53 of suicide No problems noted. Daughter No problems noted. Daughter Depression Son No problems noted. Son No problems noted. Maternal Grandfather No problems noted. Maternal Grandmother No problems noted. Paternal Grandfather , in his 90s of [place] Heart disease Myocardial infarction Paternal Grandmother No problems noted. 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 Pets and animals: Yes Pets and animals: cat(s) Sexually active: No Do you think of yourself as: straight/heterosexual Current gender identity: female What is your relationship status?: How often do you talk on the phone with friends or family?: twice per week How often do you get together with friends or relatives?: decline to answer How often do you attend scientologist or protestant services?: decline to answer Do you belong to any clubs or organized social groups?: no Panel score (0-1 are the most socially isolated patients): 0 What type of physical activity do you participate in: none Frequency: does not exercise Mayte/Temple: Nondenominational Special mayte needs: No Seatbelt use: always Helmet use: No Drive intox or ride w/intox clark driver: No Do you feel safe at home: Yes Do you feel safe in your relationship?: Yes History History 5 Para 4 Hx # Term Pregnancies Multiple births Hx # Pregnancies Ectopic pregnancies AB induced Hx Number of Living Children 4 AB spontaneous 1 Time Spent with Patient Time Spent with Patient: 45-69 minutes Time was spent: preparing to see the patient(eg.review tests), obtaining and/or reviewing separately otained hiistory, ordering medications,tests, procedures, referring, communicating with other health skin care instructor, indepentently interpreting results and counseling the patient
--- NOTE | 2023-07-14 15:35 | PDOC.CMPRO ---
Date of service: 07/14/23 Time of Service: 15:35 Care Management Progress Note Progress Note Text Progress Note Text: Jocelyn was admitted last evening with new onset CHF. She also has a history of paroxysmal atrial fibrillation. Jocelyn was treated with diuretics and beta blockers and diuresed well with an improvement in symptoms.l. She will be discharged home with no new services and follow up outpatient with PCP and Cardiology. Jocelyn left before CM was able to meet with her in person.CM did contact her pharmacy regarding her new prescription for Eliquis and learned that her copay is only $42.
== END 2023-07-14 15:05 | disposition home or self-care (01) | DRG 291 ==
LOC: ER 20:04 → MS 07-14 06:14
PROVIDERS: Admitting Provider Family Medicine; Emergency Provider Emergency Medicine; PCP Nurse Practitioner Family; Visit Provider Family Medicine
DX: I11.0 Hypertensive heart disease with heart failure (principal); I50.21 Acute systolic (congestive) heart failure; I48.0 Paroxysmal atrial fibrillation; R91.8 Other nonspecific abnormal finding of lung field; E78.49 Other hyperlipidemia; R73.03 Prediabetes; E66.9 Obesity, unspecified; Z68.30 Body mass index [BMI] 30.0-30.9, adult
CPT/HCPCS: 00123; 36415; 80053; 84145; 85027; 87637; 93005; 93308; 96365; 96372; 99285; 71045; 83735; 83880; 84439; 84443; 84484; 85025; 85379; 93010; 93306; 99223; 99239; J1650; J1940

== ENCOUNTER 2023-07-20 11:21 | Outpatient (CLI) | payer OTHER, SELFPAY ==
--- NOTE | 2023-08-13 14:33 | ZIOP_ITS ---
Date of service: 08/13/23 Time of Service: 14:34 14 Day Social Group Worker Referring Provider:: Rosalia Indications:: Paroxysmal atrial fibrillation Note: This was a 14-day monitor for paroxysmal atrial fibrillation 1. The underlying rhythm was atrial fibrillation with rate range 35 to 218 bpm with average of 77 bpm. The minimum heart rate occurred at 10:30 PM and the maximum heart rate occurred at 3:13 PM 2. There was aberrant conduction associated with wide-complex irregularly irregular tachycardia consistent with Noé's phenomenon, rather than ventricular tachycardia. 3. No pauses of more than 3 seconds Impression: Atrial fibrillation with rapid ventricular response with aberrant conduction
== END 2023-07-20 11:22 | disposition home or self-care (01) ==
LOC: CARDOPNVT 11:21
PROVIDERS: PCP Nurse Practitioner Family; Visit Provider Nurse Practitioner Family
DX: I48.0 Paroxysmal atrial fibrillation (principal)
CPT/HCPCS: 93246

== ENCOUNTER 2023-07-22 02:43 | Outpatient (CLI) | payer OTHER, SELFPAY ==
[2023-07-22 12:37] LABS: ALT 21 U/L (14-59); AST 14 U/L (15-37); Albumin 3.6 g/dL (3.4-5.0); Alkaline Phosphatase 53 U/L (46-116); Anion Gap 10.6 mmol/L (3-11); BUN 16 mg/dL (7-18); Bilirubin, Total 0.8 mg/dL (0.2-1.0); CO2 29.4 mmol/L (21.0-32.0); Calcium 8.9 mg/dL (8.5-10.1); Chloride 103 mmol/L (98-107); Estimated GFR 60.61 (mL/min/1.73m2); Glucose 119 mg/dL (74-106); NT-proBNP 1479 pg/mL (<300); Potassium 3.1 mmol/L (3.5-5.1); Sodium 143 mmol/L (136-145); Total Protein 7.1 g/dL (6.4-8.2)
== END 2023-07-22 02:44 | disposition home or self-care (01) ==
LOC: LOS 02:43
PROVIDERS: PCP Nurse Practitioner Family; Visit Provider Nurse Practitioner Family
DX: I50.9 Heart failure, unspecified
CPT/HCPCS: 36415; 80053; 83880

== ENCOUNTER 2023-08-03 08:42 | Outpatient (CLI) | payer OTHER, SELFPAY ==
--- NOTE | 2023-08-03 08:30 | RT.EKG_ITS ---
APPROVED REPORT Exam: Resting ECG Reason for Exam: afib Patient Location: O HR:75 bpm ECG Measurements Heart Rate 75 AXIS PA [id number] P [id number] QRSd 169 QRS -22 QT 452 T 167 QTc 505 Conclusion Atrial fibrillation...V-rate 57- 93, irreg A-activity Ventricular premature complex...V complex w/ short R-R interval Left bundle branch block...QRSd>120, broad/notched R I have reviewed and interpreted ECG and agree with software generated interpretation.
== END 2023-08-03 08:43 | disposition home or self-care (01) ==
LOC: DI.CARD 08:42
PROVIDERS: PCP Nurse Practitioner Family; Visit Provider Internal Medicine Interventional Cardiology
DX: I48.0 Paroxysmal atrial fibrillation (principal); R06.02 Shortness of breath
CPT/HCPCS: 93010

== ENCOUNTER → 2023-08-03 13:39 | Outpatient (BNVA) | payer OTHER, SELFPAY | PROVIDERS: PCP Nurse Practitioner Family; Referring Provider Nurse Practitioner Family; Visit Provider Internal Medicine Interventional Cardiology | DX: I50.20 Unspecified systolic (congestive) heart failure (principal); R07.89 Other chest pain; I50.9 Heart failure, unspecified; I48.20 Chronic atrial fibrillation, unspecified; I10 Essential (primary) hypertension; I48.0 Paroxysmal atrial fibrillation; R06.02 Shortness of breath | CPT/HCPCS: 93005; 99213 ==

== ENCOUNTER 2023-08-13 08:31 | Outpatient (CLI) | payer OTHER, SELFPAY | END 2023-08-13 08:32 | disposition home or self-care (01) | LOC: CARDOPNVT 08:31 | PROVIDERS: PCP Nurse Practitioner Family; Visit Provider Internal Medicine Interventional Cardiology | DX: I48.0 Paroxysmal atrial fibrillation (principal) | CPT/HCPCS: 93248 ==

== ENCOUNTER → 2023-09-10 12:49 | Outpatient (BNVA) | payer OTHER, SELFPAY | PROVIDERS: PCP Nurse Practitioner Family; Referring Provider Nurse Practitioner Family; Visit Provider Internal Medicine Cardiovascular Disease ==

== ENCOUNTER 2023-09-10 14:13 | Outpatient (CLI) | payer OTHER, SELFPAY ==
[2023-09-10 13:58] LABS: HCT 46.4 % (36.0-46.0); HGB 14.5 g/dL (11.2-15.7); MCH 27.4 pg (27.0-33.0); MCHC 31.3 % (32.0-36.0); MCV 88 fL (80-95); MPV 12.8 fL (8.0-11.0); Platelet Count 224 10^3/uL (130-400); RDW 12.6 % (11.7-14.6); RDW-SD 40.8 fL
[2023-09-10 14:11] LABS: INR 1.3 (0.9-1.1); PTT Activated 30.2 sec (23.6-32.8); Prothrombin Time 12.8 sec (9.1-11.1)
[2023-09-10 14:13] LABS: Anion Gap 11.3 mmol/L (3-11); BUN 14 mg/dL (7-18); CO2 28.7 mmol/L (21.0-32.0); CREATININE 1.1 mg/dL (0.55-1.02); Calcium 9.5 mg/dL (8.5-10.1); Chloride 103 mmol/L (98-107); Estimated GFR 54.06 (mL/min/1.73m2); Glucose 100 mg/dL (74-106); Potassium 3.3 mmol/L (3.5-5.1); Sodium 143 mmol/L (136-145)
== END 2023-09-10 14:14 | disposition home or self-care (01) ==
LOC: LBO 14:14
PROVIDERS: PCP Nurse Practitioner Family; Visit Provider Internal Medicine Cardiovascular Disease
DX: I50.20 Unspecified systolic (congestive) heart failure; I48.20 Chronic atrial fibrillation, unspecified
CPT/HCPCS: 36415; 80048; 85027; 85610; 85730; 99213

== ENCOUNTER → 2023-11-05 13:47 | Outpatient (BNVA) | payer OTHER, SELFPAY | PROVIDERS: PCP Nurse Practitioner Family; Referring Provider Nurse Practitioner Family; Visit Provider Internal Medicine Cardiovascular Disease | DX: I25.10 Atherosclerotic heart disease of native coronary artery without angina pectoris (principal); I48.20 Chronic atrial fibrillation, unspecified; I50.20 Unspecified systolic (congestive) heart failure | CPT/HCPCS: 99213 ==

== ENCOUNTER 2024-01-21 10:04 | Outpatient (CLI) | payer OTHER, SELFPAY ==
[2024-01-21 12:16] LABS: Abs Immature Grans 0.02 10^3/uL (0.0-0.06); Absolute Basophil Count 0.04 10^3/uL (0.0-0.2); Absolute Eosinophil Count 0.18 10^3/uL (0.0-0.7); Absolute Lymphocyte Count 1.18 10^3/uL (1.2-3.4); Absolute Monocyte Count 0.49 10^3/uL (0.1-0.8); Absolute Neutrophil Count 4.98 10^3/uL (1.2-6.7); Basophils % 0.6 %; Eosinophils % 2.6 %; HCT 45.9 % (36.0-46.0); HGB 14.8 g/dL (11.2-15.7); Immature Grans % 0.3 %; Lymphocytes % 17.1 %; MCHC 32.2 % (32.0-36.0); MCV 87 fL (80-95); MPV 12.6 fL (8.0-11.0); Monocytes % 7.1 %; Neutrophils % 72.3 %; Platelet Count 249 10^3/uL (130-400); RBC 5.29 10^6/uL (3.93-5.22); RDW 14.6 % (11.7-14.6); RDW-SD 46.6 fL; WBC 6.89 10^3/uL (4.4-10.8)
[2024-01-21 12:26] LABS: Hemoglobin A1C 5.8 % (<5.7)
[2024-01-21 12:36] LABS: ALT 21 U/L (14-59); AST 18 U/L (15-37); Albumin 4.2 g/dL (3.4-5.0); Alkaline Phosphatase 70 U/L (46-116); Anion Gap 9.2 mmol/L (3-11); BUN 18 mg/dL (7-18); Bilirubin, Total 1.13 mg/dL (0.2-1.0); CO2 30.8 mmol/L (21.0-32.0); Calcium 9.1 mg/dL (8.5-10.1); Calculated LDL 78 mg/dL (<100); Chloride 103 mmol/L (98-107); Cholesterol 157 mg/dL (<200); Estimated GFR 60.61 (mL/min/1.73m2); Glucose 91 mg/dL (74-106); HDL Cholesterol 61 mg/dL (40-60); Potassium 3.4 mmol/L (3.5-5.1); Sodium 143 mmol/L (136-145); TSH (W/Ref FT4) 2.26 uIU/mL (0.36-3.74); Total Protein 8.1 g/dL (6.4-8.2); Triglyceride 94 mg/dL (<150)
[2024-01-21 13:35] LABS: Lab Add On Test DONE
[2024-01-21 13:58] LABS: NT-proBNP 2102 pg/mL (<300)
[2024-01-22 13:18] LABS: HBs Antibody, Quant <3.1 mIU/mL (See Note); Hep B Surface Ab Negative (See Note); Hepatitis B Core Antibody Negative (Negative); Hepatitis B Surface Antigen Negative (Negative)
[2024-01-22 13:19] LABS: HIV-1/2 Ag & Ab Screen Negative (Negative)
[2024-01-22 13:20] LABS: Hepatitis C Ab w Rflx HCV PCR Negative (Negative)
== END 2024-01-21 10:05 | disposition home or self-care (01) ==
LOC: LOS 10:04
PROVIDERS: PCP Nurse Practitioner Family; Referring Provider Nurse Practitioner Family; Visit Provider Nurse Practitioner Family
DX: R73.03 Prediabetes (principal); I25.10 Atherosclerotic heart disease of native coronary artery without angina pectoris; I48.20 Chronic atrial fibrillation, unspecified; Z11.59 Encounter for screening for other viral diseases; Z11.4 Encounter for screening for human immunodeficiency virus [HIV]; I50.20 Unspecified systolic (congestive) heart failure
CPT/HCPCS: 36415; 80053; 80061; 86704; 86706; 86803; 87340; 87389; 83036; 83880; 84443; 85025

== ENCOUNTER → 2024-01-29 00:21 | Outpatient (CLI) | payer OTHER, SELFPAY ==
--- NOTE | 2024-01-29 07:15 | DI.RAD_ITS ---
Exam(s) XR CHEST 2V PA LATERAL EXAM: XR CHEST 2V PA LATERAL CLINICAL HISTORY: SOB, re-eval left lung infiltrate,R06.02. TECHNIQUE: 2D digital imaging was performed. COMPARISON: CR XR PORTABLE CHEST AP from 07/13/2023 FINDINGS: 2 views: Cardiomegaly again noted. Mediastinum is widened. There is no evidence of pulmonary edema. Right lung is clear. There is persistent infiltrate in left lower lobe and small-moderate sized left pleural effusion. IMPRESSION: Persistent left lower lobe infiltrate and slight increase in size of left pleural effusion when misti red to 07/13/2023. Close follow-up recommended to rule out neoplastic findings in the left lung base . Recommend follow-up CT scan. DATA REPOSITORY: RADIATION DOSE DELIVERED:
--- NOTE | 2024-01-29 12:30 | DI.US_ITS ---
APPROVED REPORT EXAM: Comprehensive 2D, Doppler, and color-flow Echocardiogram Patient Location: Out-Patient Radiologic Technology Program Director: Jonnathan Everett RDCS (AE) Indications: Reassess heart failure, SOB Conclusion Left ventricle is mildly dilated. Ejection fraction is 35%. There is global hypokinesis. Septal mo tion is consistent with an IVCD Grossly normal right ventricular size and function Both atria are moderately dilated Trileaflet aortic valve with trace regurgitation Normal mitral valve with moderate central regurgitation Mild tricuspid regurgitation. Estimated right ventricular systolic pressure is 33 mmHg Left pleural effusion Wall motion Left Ventricle Left ventricle is mildly dilated. Left ventricular systolic function is mild to moderately decreased. Unable to assess LV wall thickness. There is global hypokinesis of the left ventricle. There is no v entricular septal defect visualized. LVEF is 35%. Right Ventricle The right ventricle is normal size. The right ventricular systolic function is normal. Atria Left atrium is moderately dilated. Right atrium is moderately dilated. The interatrial septum is inta ct with no evidence for an atrial septal defect. Aortic Valve The aortic valve is normal in structure. Aortic valve is trileaflet. There is no aortic valvular sten osis. Trace aortic regurgitation. Mitral Valve The mitral valve is normal in structure. No evidence of mitral valve stenosis. Moderate mitral regurg itation. Tricuspid Valve The tricuspid valve is normal in structure. There is no tricuspid valve stenosis. Mild tricuspid regu rgitation. The RVSP is 33.2 mmHg. Pulmonic Valve The pulmonary valve is normal in structure. There is no pulmonic valvular stenosis. There is no pulmo zechariah valvular regurgitation. Great Vessels The aortic root is normal in size. The ascending aorta is normal in size. Aortic arch is normal in ca liber. IVC is normal in size and collapses >50% with inspiration. Pericardium No pericardial effusion. Moderate left pleural effusion. 2D Dimensions IVSD d PLAX 1.03 cm F: 0.6-1.0 Ao Root d 2.63 cm F: 2.7 - 3.3 LVPW d PLAX 0.96 cm F: 0.6 - 1.0 Ao Asc Diam d 2.44 cm F: 2.3 - 3.1 LVID d PLAX 5.85 cm F: 3.8 - 5.2 LVDs 4.86 cm F: 2.2 - 3.5 LV EF Teichholz 34.8 % FS 16.91 % LV EDV (Teich) 170.0 mL LV ESV (Teich) 110.8 mL Stroke Vol Index (Teich) 28.59 M-Mode TAPSE 1.11 cm (M/F) >1.7 Auto EF LV EDV A4C 213.0 mL LV EDV A2C 226.3 mL LV EDV BP 227.9 mL LV ESV A4C 138.0 mL LV ESV A2C 137.6 mL LV ESV BP 144.8 mL LVEF(%) A4C 35.2 % LVEF(%) A2C 39.2 % LVEF(%) BP 36.5 % LV SV A4C 75.0 ml LV SV A2C 88.7 ml LV SV BP 83.1 ml LV CO A4C 5.6 L/min LV CO A2C 7.1 L/min LV CO BP 6.4 L/min HR A4C 75.12 BPM HR A2C 80.18 BPM LV EDV Index (BP) LA Volume LA Length A4C 6.8 cm LA Length A2C 7.7 cm LA Area A4C s 29.40 cm2 LA Area A2C s 40.24 cm2 LA Vol A4C A-L 108.07 mL LA Vol A2C A-L 177.97 mL LA Vol Biplane A-L 147.9 mL LA Vol/BSA A4C A-L LA Vol/BSA A2C A-L LA Vol/BSA BP A-L 71.4 mL/m2 LA Vol A4C MOD 102.0 mL LA Vol A2C MOD 172.8 mL LA Vol BP MOD 141.4 mL RA Volume RA Area A4C 23.2 cm2 RA ESV A4C (A-L) 66.8mL RA Vol/BSA A4C A-L RA Length A4C 6.8 cm RA ESV A4C (MOD) 68.1mL LV Diastology MV E' medial 0.074 (>0.07 m/s) MV E Vmax 1.27 (0.4-1.3 m/s) MV E' lateral 0.121 (>0.1 m/s) Aortic Valve AoV Vmax 1.36 m/s LVOT Vmax 1.22 m/s AoV Peak Grad 7.4 mmHg LVOT Peak Grad 6.0 mmHg AoV Area (Vmax) 2.81 cm2 LVOT VTI 0.246 m AoV VTI 0.270 m LVOT Mean Grad 3.0 mmHg AoV Mean Elias. 0.92 m/s LVOT SV 76.90 mL AoV Mean Grad 3.9 mmHg LVOT Diam s 1.95 cm AoV Area (VTI) 2.85 cm2 AV Regurg Peak Gr. 7.43 mmHg Velocity Ratio 0.90 Mitral Valve MV Vmax TIPS 1.43 m/s MR Vmax 4.54 m/s MV Mean Grad 3.2 (<2mmHg) MR VTI 1.553 m MV VTI 0.311 m MR Peak Grad 82.4 mmHg MR Mean Grad 51.3 mmHg MR PISA Radius 0.57 cm MR Aliasing Velocity 0.36 m/s Pulmonary Valve PV Vmax 0.74 (0.5-1.5 m/s) RVOT Vmax 0.66 m/s PV Peak Grad 2.2 mmHg RVOT Peak Gr. 1.7 mmHg PV Mean Elias 0.52 m/s RVOT VTI 0.134 m PV Mean Grad 1.3 mmHg RVOT Mean Gr. 0.8 mmHg Tricuspid Valve RA Pressure 3.00 mmHg TR Vmax 2.75 m/s TR Peak Grad 30.1 mmHg RVSP (TR) 33.2 mmHg
== END ==
PROVIDERS: PCP Nurse Practitioner Family; Visit Provider Nurse Practitioner Family
DX: R06.02 Shortness of breath (principal); I50.20 Unspecified systolic (congestive) heart failure; Z78.0 Asymptomatic menopausal state; J90 Pleural effusion, not elsewhere classified
CPT/HCPCS: 71046; 93306

== ENCOUNTER → 2024-02-01 13:28 | Outpatient (BNVA) | payer OTHER, SELFPAY | PROVIDERS: PCP Nurse Practitioner Family; Referring Provider Nurse Practitioner Family; Visit Provider Internal Medicine Cardiovascular Disease | DX: I25.10 Atherosclerotic heart disease of native coronary artery without angina pectoris (principal); I48.19 Other persistent atrial fibrillation; I50.20 Unspecified systolic (congestive) heart failure | CPT/HCPCS: 99213 ==

== ENCOUNTER → 2024-02-08 10:19 | Outpatient (BNVA) | payer OTHER, SELFPAY | PROVIDERS: PCP Nurse Practitioner Family; Referring Provider Nurse Practitioner Family; Visit Provider Internal Medicine Cardiovascular Disease | DX: I25.10 Atherosclerotic heart disease of native coronary artery without angina pectoris (principal); I50.20 Unspecified systolic (congestive) heart failure | CPT/HCPCS: 99213 ==

== ENCOUNTER → 2024-02-22 11:20 | Outpatient (BNVA) | payer OTHER, SELFPAY | PROVIDERS: PCP Nurse Practitioner Family; Referring Provider Nurse Practitioner Family; Visit Provider Surgery | DX: L81.9 Disorder of pigmentation, unspecified (principal); R73.03 Prediabetes | CPT/HCPCS: 99215 ==

== ENCOUNTER → 2024-02-29 14:29 | Outpatient (BNVA) | payer OTHER, SELFPAY | PROVIDERS: PCP Nurse Practitioner Family; Referring Provider Nurse Practitioner Family; Visit Provider Internal Medicine Cardiovascular Disease | DX: I50.20 Unspecified systolic (congestive) heart failure (principal); I25.10 Atherosclerotic heart disease of native coronary artery without angina pectoris | CPT/HCPCS: 99213 ==

== ENCOUNTER 2024-06-16 03:34 | Outpatient (CLI) | payer OTHER, SELFPAY ==
[2024-06-16 13:16] LABS: ALT 16 U/L (14-59); AST 19 U/L (15-37); Albumin 4.3 g/dL (3.4-5.0); Alkaline Phosphatase 74 U/L (46-116); Anion Gap 8.8 mmol/L (3-11); BUN 19 mg/dL (7-18); Bilirubin, Direct 0.3 mg/dL (0.0-0.2); Bilirubin, Total 0.99 mg/dL (0.2-1.0); CO2 31.2 mmol/L (21.0-32.0); CREATININE 1.1 mg/dL (0.55-1.02); Calcium 9.1 mg/dL (8.5-10.1); Chloride 102 mmol/L (98-107); Estimated GFR 54.06 (mL/min/1.73m2); Glucose 116 mg/dL (74-106); Magnesium 2.6 mg/dL (1.8-2.4); NT-proBNP 1760 pg/mL (<300); Potassium 3.2 mmol/L (3.5-5.1); Sodium 142 mmol/L (136-145); Total Protein 8.3 g/dL (6.4-8.2)
== END 2024-06-16 03:35 | disposition home or self-care (01) ==
LOC: LBO 03:34
PROVIDERS: PCP Nurse Practitioner Family; Visit Provider Internal Medicine Cardiovascular Disease
DX: I50.9 Heart failure, unspecified (principal)
CPT/HCPCS: 36415; 80048; 80076; 83735; 83880

== ENCOUNTER → 2024-07-05 13:17 | Outpatient (BNVA) | payer OTHER, SELFPAY | PROVIDERS: PCP Nurse Practitioner Family; Referring Provider Nurse Practitioner Family; Visit Provider Internal Medicine Cardiovascular Disease | DX: I25.10 Atherosclerotic heart disease of native coronary artery without angina pectoris (principal); I48.19 Other persistent atrial fibrillation; I50.20 Unspecified systolic (congestive) heart failure | CPT/HCPCS: 99213 ==